=== PATIENT | female | born 1945 | race Hispanic/Latino ===

== ENCOUNTER 2017-06-30 15:06 | Emergency (ER) | payer MEDICARE ==
[2017-06-30] MEDS ORDERED: Clindamycin 150 MG CAP ONE (15:35)
[2017-06-30] MEDS ORDERED: traMADol HCl 50 MG TAB ONE (15:46)
== END 2017-06-30 15:50 | disposition home or self-care (01) ==
LOC: ERS 15:06
DX: K03.81 Cracked tooth (principal); K02.9 Dental caries, unspecified; I25.10 Atherosclerotic heart disease of native coronary artery without angina pectoris; E11.9 Type 2 diabetes mellitus without complications; E78.5 Hyperlipidemia, unspecified; I10 Essential (primary) hypertension
CPT/HCPCS: 99282

== ENCOUNTER 2017-10-03 14:34 | Outpatient (CLI) | payer MEDICARE | END 2017-10-03 14:35 | disposition home or self-care (01) | LOC: BICMAMMO 14:34 | PROVIDERS: ATTEND Family Medicine | DX: Z12.31 Encounter for screening mammogram for malignant neoplasm of breast (principal) | CPT/HCPCS: 77063; 77067 ==

== ENCOUNTER 2017-12-22 11:58 | Emergency (ER) | payer MEDICARE ==
[2017-12-22] MEDS ORDERED: HYDROcodone/Acetaminophen 5/325 mg Tablet ONE (13:59)
--- NOTE | 2017-12-22 14:07 | RAD ---
LEFT TIBIA FIBULA 2 VIEWS: HISTORY: Fall. Posttraumatic pain. COMPARISON: None. FINDINGS: No fracture, cortical irregularity, or periosteal reaction. There is mild bone demineralization. IMPRESSION: No fracture. POS: [facility]
--- NOTE | 2017-12-22 14:11 | RAD ---
LEFT FOOT THREE VIEWS: HISTORY: Fall. Pain. COMPARISON: None. FINDINGS: There is diffuse bone demineralization. Vascular calcifications are noted. Lisfranc alignment is ma intained. There appear to be fractures involving the distal aspect of the proximal phalanx of the se cond and third digits. Possible intraarticular extension. IMPRESSION: Probable fractures involving the distal aspect of the proximal phalanx of the second and third digits . POS: [facility]
--- NOTE | 2017-12-22 14:14 | RAD ---
LEFT KNEE FOUR VIEWS: HISTORY: Fall. Posttraumatic pain. COMPARISON: 08/09/2013 FINDINGS: No joint effusion. Joint spaces are preserved. No fracture or malalignment. 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 Vascular calcifications are noted. IMPRESSION: No posttraumatic change. POS: [facility]
== END 2017-12-22 14:10 | disposition home or self-care (01) ==
LOC: ERS 11:58
DX: S92.512A Displaced fracture of proximal phalanx of left lesser toe(s), initial encounter for closed fracture (principal); E11.9 Type 2 diabetes mellitus without complications; I25.10 Atherosclerotic heart disease of native coronary artery without angina pectoris; I10 Essential (primary) hypertension; E78.5 Hyperlipidemia, unspecified; Z79.4 Long term (current) use of insulin; Z79.899 Other long term (current) drug therapy; Z79.891 Long term (current) use of opiate analgesic; W08.XXXA Fall from other furniture, initial encounter

== ENCOUNTER 2020-06-11 12:44 | Outpatient (CLI) | payer MEDICARE | END 2020-06-11 12:45 | disposition home or self-care (01) | LOC: BICULT 12:44 | PROVIDERS: ATTEND Family Medicine | DX: I70.235 Atherosclerosis of native arteries of right leg with ulceration of other part of foot (principal); L03.115 Cellulitis of right lower limb; L97.519 Non-pressure chronic ulcer of other part of right foot with unspecified severity; Z79.4 Long term (current) use of insulin | CPT/HCPCS: 93923 ==

== ENCOUNTER 2020-12-08 13:06 | Outpatient (CLI) | payer MEDICARE | END 2020-12-08 13:07 | disposition home or self-care (01) | LOC: NM 13:06 | PROVIDERS: ATTEND Internal Medicine Cardiovascular Disease | DX: I51.7 Cardiomegaly (principal) | CPT/HCPCS: 78803; A9538 ==

== ENCOUNTER 2021-01-02 00:13 | Inpatient (IN) | payer MEDICARE ==
[2021-01-02 01:13] LABS: Calcium 8.5 mg/dL (7.8-10.44)
[2021-01-02 01:14] LABS: Globulin 4.6 g/dL (2.4-3.5); Protein, Total 7.6 g/dL (5.8-8.1)
[2021-01-02 01:15] LABS: Anion Gap 21 mmol/L (10-20); Bilirubin, Total 1.6 mg/dL (0.2-1.2); Carbon Dioxide 20 mmol/L (23-31)
[2021-01-02 01:16] LABS: Alkaline Phosphatase 173 U/L (40-110)
[2021-01-02 01:17] LABS: Calc. Creatinine Clearance 0 mL/min (70-130); Glucose 160 mg/dL (83-110)
[2021-01-02 01:18] LABS: BUN (Urea Nitrogen) 22 mg/dL (9.8-20.1)
[2021-01-02 01:19] LABS: ALT (SGPT) 14 U/L (8-55); AST (SGOT) 50 U/L (5-34)
[2021-01-02 01:24] LABS: #Basophils 0.1 thou/uL (0.0-0.2); #Lymphocytes 1.5 thou/uL (1.20-3.40); #Monocytes 0.5 thou/uL (0.11-0.59); #Neutrophils 2.6 thou/uL (1.40-6.50); %Basophils 1.2 % (0.0-1.0); %Eosinophils 0.5 % (0.0-10.0); %Lymphocytes 31.4 % (21.0-51.0); %Monocytes 10.6 % (0.0-10.0); %Neutrophils 56.3 % (42.0-75.0); Mean Corpuscular HGB CONC 32.5 g/dL (32.0-36.0); Mean Corpuscular Hemoglobin 31.2 pg (27.0-31.0); Mean Corpuscular Volume 95.9 fL (78.0-98.0); Mean Platelet Volume 10.5 fL (7.4-10.4); Platelet Count 139 thou/uL (130-400); RBC Distribution Width 16.7 % (11.5-14.5); Red Blood Cell (RBC) Count 3.83 mill/uL (4.20-5.40); White Blood Cell (WBC) Count 4.7 thou/uL (4.8-10.8)
[2021-01-02 01:31] LABS: Chloride 101 mmol/L (98-107); Potassium 4.7 mmol/L (3.5-5.1); Sodium 137 mmol/L (136-145)
[2021-01-02 01:50] LABS: CKMB 0.5 ng/mL (0-6.6)
[2021-01-02 02:06] LABS: CO2 Tension 35.5 mmHg (35.0-45.0); O2 Tension (PaO2), arterial 65.2 mmHg (> 70.0); pH, Arterial 7.47 (7.35-7.45)
[2021-01-02 02:07] LABS: Actual Bicarbonate (HCO3a) 25.3 mEq/L (22-28); Base Excess (BEa) 1.8 mEq/L (-2.0 to +3.0); Calcium, Ionized (arterial) 1.06 mmol/L (1.12-1.30); Carboxyhemoglobin (COHb) 0.9 gm% (0.0-3.0); Potassium - ABG Lab 3.73 mmol/L (3.70-5.30)
[2021-01-02 02:08] LABS: ALV-art Gradient 40.155 mmHg (0-20); Analyzer IN Cardio ER; Puncture Site LRA
[2021-01-02] MEDS ORDERED: Vancomycin 1 GM/200 ML BAG ONE (02:13)
[2021-01-02] MEDS ORDERED: cefTRIAXone\\ROCEPHIN 2 GM VIAL ONE (02:13)
[2021-01-02] MEDS ORDERED: Cefepime 2 GM VIAL ONE (02:15)
[2021-01-02 03:44] LABS: SARS-CoV-2 NAA Rapid Test Not Detected (NotDetected)
[2021-01-02 04:54] LABS: Lactic Acid 1.5 mmol/L (0.5-2.2)
[2021-01-02 07:08] LABS: Troponin I 0.318 ng/mL (< 0.028)
[2021-01-02] MEDS ORDERED: hydrALAZINE 20 MG/ML VIAL SLOW IVP PRN (10:47)
[2021-01-02] MEDS ORDERED: Acetaminophen 500 MG TAB PO PRN (10:47)
[2021-01-02] MEDS ORDERED: HumaLOG 300 UNITS/3 ML VIAL SC PRN (10:47)
[2021-01-02] MEDS ORDERED: Dextrose 50% Abboject 50 ML SYRINGE SLOW IVP PRN (10:47)
[2021-01-02] MEDS ORDERED: Dextrose 5% in Water 1,000 ML IV PRN (10:47)
[2021-01-02] MEDS ORDERED: RENALLY ADJUST MEDICATIONS FS SCH (10:47)
[2021-01-02] MEDS ORDERED: Ondansetron ODT 4 MG TAB PO PRN (10:47)
[2021-01-02] MEDS ORDERED: Ondansetron PF 4 MG/2 ML Vial IVP PRN (10:47)
[2021-01-02] MEDS: Sodium Chloride 0.9% 1,000 ML IV SCH (11:45)
[2021-01-02 16:55] VITALS: BMI 23.3
[2021-01-02] MEDS: metroNIDAZOLE 500 MG in Premix Bag 1 BAG IVPB SCH ×2 (17:32→22:22)
[2021-01-02] MEDS ORDERED: Cefepime 1 GM in Sodium Chloride 0.9% 100 ML IVPB SCH (21:00)
[2021-01-03] MEDS: metroNIDAZOLE 500 MG in Premix Bag 1 BAG IVPB SCH ×3 (02:46→17:23)
[2021-01-03 04:57] LABS: #Eosinphils 0.1 thou/uL (0.0-0.7); #Lymphocytes 0.6 thou/uL (1.20-3.40); #Monocytes 0.6 thou/uL (0.11-0.59); #Neutrophils 2.8 thou/uL (1.40-6.50); %Eosinophils 2.9 % (0.0-10.0); %Lymphocytes 14.2 % (21.0-51.0); %Monocytes 14.7 % (0.0-10.0); %Neutrophils 68.1 % (42.0-75.0); Mean Corpuscular HGB CONC 32.5 g/dL (32.0-36.0); Mean Corpuscular Volume 95.5 fL (78.0-98.0); Mean Platelet Volume 10.3 fL (7.4-10.4); Platelet Count 134 thou/uL (130-400); RBC Distribution Width 16.4 % (11.5-14.5); Red Blood Cell (RBC) Count 3.54 mill/uL (4.20-5.40); White Blood Cell (WBC) Count 4.1 thou/uL (4.8-10.8)
[2021-01-03 05:22] LABS: ALT (SGPT) 16 U/L (8-55); AST (SGOT) 32 U/L (5-34); Albumin 2.1 g/dL (3.4-4.8); Alkaline Phosphatase 111 U/L (40-110); Anion Gap 10 mmol/L (10-20); BUN (Urea Nitrogen) 29 mg/dL (9.8-20.1); Bilirubin, Total 0.8 mg/dL (0.2-1.2); Calc. Creatinine Clearance 14 mL/min (70-130); Calcium 6.7 mg/dL (7.8-10.44); Carbon Dioxide 22 mmol/L (23-31); Chloride 108 mmol/L (98-107); Globulin 3.3 g/dL (2.4-3.5); Glucose 159 mg/dL (83-110); Potassium 3.2 mmol/L (3.5-5.1); Protein, Total 5.4 g/dL (5.8-8.1); Sodium 137 mmol/L (136-145)
[2021-01-03] MEDS: Levothyroxine Sodium 100 MCG TAB PO SCH (06:11)
[2021-01-03] MEDS: Sodium Chloride 0.9% 1,000 ML IV SCH ×2 (07:43→09:46)
[2021-01-03] MEDS ORDERED: FLU VACC QS2021-22(65YR UP)/PF 240 MCG/0.7 ML SYRINGE IM ONE (09:00)
[2021-01-03] MEDS: Famotidine 20 MG TAB PO SCH (09:44)
[2021-01-03] MEDS: HumaLOG 300 UNITS/3 ML VIAL SC PRN (17:24)
[2021-01-03] MEDS ORDERED: Potassium Chloride 20 MEQ TAB PO SCH (18:15)
[2021-01-03] MEDS: Azithromycin 200 MG/5 ML Oral Suspension PO SCH (18:36)
[2021-01-03] MEDS ORDERED: Cefepime 2 GM in Sodium Chloride 0.9% 100 ML IVPB SCH (21:00)
[2021-01-04 05:14] LABS: #Eosinphils 0.1 thou/uL (0.0-0.7); #Lymphocytes 0.8 thou/uL (1.20-3.40); #Monocytes 0.8 thou/uL (0.11-0.59); #Neutrophils 3.6 thou/uL (1.40-6.50); %Basophils 0.3 % (0.0-1.0); %Lymphocytes 15.7 % (21.0-51.0); %Monocytes 14.4 % (0.0-10.0); %Neutrophils 67.7 % (42.0-75.0); Hemoglobin 11.7 g/dL (12.0-16.0); Mean Corpuscular HGB CONC 31.4 g/dL (32.0-36.0); Mean Corpuscular Hemoglobin 29.9 pg (27.0-31.0); Mean Corpuscular Volume 95.2 fL (78.0-98.0); Mean Platelet Volume 10.7 fL (7.4-10.4); Platelet Count 147 thou/uL (130-400); RBC Distribution Width 16.4 % (11.5-14.5); White Blood Cell (WBC) Count 5.3 thou/uL (4.8-10.8)
[2021-01-04 05:34] LABS: Anion Gap 16 mmol/L (10-20); BUN (Urea Nitrogen) 40 mg/dL (9.8-20.1); Calc. Creatinine Clearance 10 mL/min (70-130); Calcium 7.7 mg/dL (7.8-10.44); Carbon Dioxide 18 mmol/L (23-31); Chloride 106 mmol/L (98-107); Glucose 178 mg/dL (83-110); Potassium 4.5 mmol/L (3.5-5.1); Sodium 135 mmol/L (136-145)
[2021-01-04] MEDS: Levothyroxine Sodium 100 MCG TAB PO SCH (05:44)
[2021-01-04] MEDS: HumaLOG 300 UNITS/3 ML VIAL SC PRN (06:43)
[2021-01-04] MEDS: Famotidine 20 MG TAB PO SCH (09:02)
[2021-01-04] MEDS: Azithromycin 200 MG/5 ML Oral Suspension PO SCH (18:20)
[2021-01-04] MEDS ORDERED: Famotidine 20 MG TAB PO SCH (21:00)
[2021-01-04] MEDS: Apixaban 2.5 MG TAB PO SCH (21:04)
[2021-01-05] MEDS: HumaLOG 300 UNITS/3 ML VIAL SC PRN (05:43)
[2021-01-05] MEDS: Levothyroxine Sodium 100 MCG TAB PO SCH (05:44)
[2021-01-05] MEDS: Apixaban 2.5 MG TAB PO SCH (07:54)
[2021-01-05 08:21] VITALS: BP 144/68; TEMP 98.3
[2021-01-05] MEDS ORDERED: Lantus 1000 UNITS/10 ML VIAL SC SCH (09:00)
[2021-01-05] MEDS ORDERED: Cholecalciferol 1,000 UNITS (25 MCG) TAB PO SCH (09:00)
== END 2021-01-05 11:21 | disposition home or self-care (01) | DRG 871 ==
LOC: ERS 00:13 → ERHOLD 03:20 → 2NO 16:35
PROVIDERS: ADMIT Student in an Organized Health Care Education/Training Program; ATTEND Family Medicine
PROC: 5A1D70Z Performance of Urinary Filtration, Intermittent, Less than 6 Hours Per Day (ICD-10-PCS; principal; 2021-01-03)
DX: A41.59 Other Gram-negative sepsis (principal); G93.41 Metabolic encephalopathy; J96.01 Acute respiratory failure with hypoxia; N18.6 End stage renal disease; A04.5 Campylobacter enteritis; E87.2 Acidosis; I50.32 Chronic diastolic (congestive) heart failure; I13.2 Hypertensive heart and chronic kidney disease with heart failure and with stage 5 chronic kidney disease, or end stage renal disease; E11.22 Type 2 diabetes mellitus with diabetic chronic kidney disease; Z20.822 Contact with and (suspected) exposure to COVID-19; I25.10 Atherosclerotic heart disease of native coronary artery without angina pectoris; E78.5 Hyperlipidemia, unspecified; E86.0 Dehydration; E03.9 Hypothyroidism, unspecified; D64.9 Anemia, unspecified; Z99.2 Dependence on renal dialysis; Z90.49 Acquired absence of other specified parts of digestive tract; Z88.5 Allergy status to narcotic agent
CPT/HCPCS: 0240U; 36415; 36416; 36600; 71045; 80048; 80053; 82140; 82274; 82553; 82805; 83605; 83630; 83880; 84484; 85025; 87040; 87045; 87046; 87324; 87427; 87449; 90935; 93005; 93306; 96365; 96366; 96367; G0257; J0692; J0696; J1815; J3370; J3490; J7050